=== PATIENT | male | born 1975 | race African-American/Black ===

== ENCOUNTER 2017-10-26 01:53 | Emergency (ER) | payer OTHER ==
[~2017-10-26] VITALS: Ht 177.8 cm; Wt 99.8 kg
[~2017-10-26 01:53] MED LIST: AMBIEN 5 MG TABL5 M1 PO
== END 2017-10-26 02:09 | disposition left against medical advice (07) ==
LOC: ER 01:53
DX: Z53.21 Procedure and treatment not carried out due to patient leaving prior to being seen by health care provider (principal)